=== PATIENT | male | born 1985 | race Two or more races ===

== ENCOUNTER 2017-01-15 21:20 | Emergency (ER) | payer SELFPAY ==
[~2017-01-15] VITALS: Ht 172.7 cm; Wt 65.8 kg
[2017-01-16 02:30] VITALS: BP 146/80
[2017-01-16] MEDS ORDERED: KETOROLAC TROMETH 60MG/2ML VIAL IM ONE (02:30)
== END 2017-01-16 03:27 | disposition home or self-care (01) ==
LOC: ER 21:30
DX: M54.2 Cervicalgia (principal); R07.9 Chest pain, unspecified; V43.62XA Car passenger injured in collision with other type car in traffic accident, initial encounter; Y93.89 Activity, other specified; Y99.8 Other external cause status; Y92.89 Other specified places as the place of occurrence of the external cause
CPT/HCPCS: 71010; 72125; 96372; 99284; J1885